=== PATIENT | male | born 1940 | race Caucasian/White ===

== ENCOUNTER 2016-07-21 18:17 | Emergency (ER) | payer OTHER, BC ==
[~2016-07-21] VITALS: Ht 182.9 cm; Wt 80.7 kg
[~2016-07-21 18:17] MED LIST: ASPIRIN81 M2 PO; ATIVAN1 MG PO; CARDIZEM CD120 MG PO; HUMULIN N100 UNIT/1 SUBQ; KEFLEX500 MG PO; LIPITOR40 MG PO; METOPROLOL SUCC25 M1 PO; NEURONTIN600 MG PO; PLAVIX 75 MG TA75 M1 PO; PRAVACHOL20 MG PO; SILVADENE20 GM TP
[2016-07-21] MEDS ORDERED: TIZANIDINE HCL4 MG PO (19:43)
[2016-07-21] MEDS ORDERED: IBUPROFEN 600600 M1 PO (19:43)
[2016-07-21] MEDS ORDERED: ULTRAM 50MG TAB50 MG PO (19:43)
== END 2016-07-21 20:04 | disposition home or self-care (01) ==
LOC: ER 18:17
DX: M54.5 Low back pain (principal); E11.9 Type 2 diabetes mellitus without complications; I25.2 Old myocardial infarction

== ENCOUNTER 2017-10-26 06:58 | Inpatient (IN) | payer OTHER, BC ==
[~2017-10-26] VITALS: Ht 185 cm; Wt 83.3 kg
--- NOTE | ~2017-10-26 | EKG ---
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
--- NOTE | ~2017-10-26 | 2DMMODE ---
[facility] [address] [place] [address] 2 D/M-MODE ECHOCARDIOGRAM Name: KWAME PATEL Room #: 217-P [facility] [place] IN M.R.#: [id number] Admission: 10/26/17 Attend Phys: Juan Carlos Aquino, Discharge: 10/27/17 Date of : 40 Date of Service: 10/27/17 1517 Report #: [id number] THIS REPORT FOR: //name// APPROVED REPORT Study performed: 10/27/2017 09:29:14 EXAM: Comprehensive 2D, Doppler, and color-flow Echocardiogram Patient Location: Echo lab Room #: [facility] Status: routine BSA: 2.05 HR: 75 bpm BP: 128/70 mmHg Other Information Study Quality: Good Indications Diabetes Atrial Fibrillation CAD 2D Dimensions RVDd: 48.53 mm LVEF(%): 59.83 (>50%) IVSd: 12.04 (7-11mm) LVOT Diam: 23.74 (18-24mm) LVDd: 44.18 mm PWd: 12.63 (7-11mm) Ascending Ao: 36.15 (22-36mm) LVDs: 30.20 (25-40mm) Aortic Root: 35.00 mm IVC: 27.00 mm Scruggs's LVEF: 59.83 % Volumes Left Atrial Volume (Systole) Single Plane 4CH: 69.30 mL Single Plane 2CH: 92.42 mL LA ESV Index: 43.00 mL/m2 Aortic Valve AoV Peak Joseph.: 0.87 m/s AO Peak Gr.: 3.04 mmHg LVOT Max P.64 mmHg LVOT Max V: 0.64 m/s DAI Vmax: 3.24 cm2 Mitral Valve MV Decel. Time: 172.27 ms [facility] [place] [address] 2 D/M-MODE ECHOCARDIOGRAM Name: AMANDAMAPLE Room #: [address] [place] [address] [place] M.R.#: [id number] Admission: 10/26/17 Attend Phys: Juan Carlos Aquino, Discharge: 10/27/17 Date of : 40 Date of Service: 10/27/17 1517 Report #: [id number] MV E Max Joseph.: 0.92 m/s Pulmonary Valve PV Peak Joseph.: 0.47 m/s PV Peak Gr.: 0.89 mmHg Tricuspid Valve TR Peak Joseph.: 2.34 m/s TR Peak Gr.: 22.18 mmHg PA Pressure: 32.00 mmHg Left Ventricle The left ventricle is normal size. There is normal LV segmental wall motion. Mild concentric left ventricular hypertrophy. The left ventricular systolic function is normal. The left ventricular ejection fraction is within the normal range. LVEF is 55-60%. This study is not technically sufficient to allow evaluation of the LV diastolic function due to atrial fibrillation. Right Ventricle Right ventricle is dilated. Right ventricle is hypokinetic. Atria Left atrium is dilated. Right atrium is dilated. Aortic Valve Aortic valve is calcified, trileaflet Trace aortic regurgitation. There is no aortic valvular stenosis. Mitral Valve Mild mitral annular calcification Mild mitral regurgitation. No evidence of mitral valve stenosis. Tricuspid Valve The tricuspid valve is normal in structure. There is mild tricuspid regurgitation. Estimated PAP 32 mmHg. There is mild pulmonary hypertension. Pulmonic Valve The pulmonary valve is normal in structure. Trace pulmonic regurgitation. Great Vessels The aortic root is normal in size. IVC is dilated and collapses <50% with inspiration. [facility] [address] [place] [address] 2 D/M-MODE ECHOCARDIOGRAM Name: AMANDAMAPLE Room #: 217-P [facility] [place] IN M.R.#: [id number] Admission: 10/26/17 Attend Phys: Juan Carlos Aquino, Discharge: 10/27/17 Date of : 40 Date of Service: 10/27/17 1517 Report #: [id number] Pericardium Trace to small pericardial effusion. <Conclusion> The left ventricular systolic function is normal. There is normal LV segmental wall motion. LVEF is 55-60%. Both atria are dilated. Aortic valve is calcified, trileaflet. No stenosis. Trace aortic regurgitation. Mild mitral annular calcification. Mild mitral regurgitation. There is mild tricuspid regurgitation. Estimated pulmonary artery pressure of 32 mmHg. Trace to small pericardial effusion. <ELECTRONICALLY SIGNED> By: Miguel Leone MD, FACC 10/27/17 151 16 16 Miguel Leone MD, FAC /INF
[~2017-10-26 06:58] MED LIST changes: +IBUPROFEN 600600 M1 PO; +TIZANIDINE HCL4 MG PO; +ULTRAM 50MG TAB50 MG PO
[2017-10-26 07:06] VITALS: BP 117/77
[2017-10-26 07:28] LABS: ABSOLUTE NEUTROPHILS 3.8 thou/uL (1.4-8.2); EOSINOPHILS 9.1 % (0.0-3.0); HEMATOCRIT 42.2 % (42.0-52.0); HEMOGLOBIN 14.1 gm/dL (14.0-18.0); LYMPHOCYTES 22.3 % (24.0-44.0); MCH 30.5 pg (26.0-34.0); MCHC 33.5 g/dL (28.0-37.0); MCV 91.1 fL (80.0-100.0); MONOCYTES 7.3 % (1.0-8.0); PLATELET COUNT 330 thou/uL (150-400); POLYS 60.3 % (36.0-66.0); RBC 4.64 mil/uL (4.50-6.00); RDW 16.6 % (10.5-14.5); WBC 6.3 thou/uL (4.0-11.0)
[2017-10-26 07:34] LABS: ANION GAP 6 mmol/L (7-16); BUN 14 mg/dL (7-18); CALCIUM 9.4 mg/dL (8.5-10.1); CHLORIDE 100 mmol/L (98-107); CO2 27 mmol/L (21-32); CREATININE 1.2 mg/dL (0.7-1.3); GLUCOSE 269 mg/dL (74-106); POTASSIUM 4.7 mmol/L (3.5-5.1); SODIUM 133 mmol/L (136-145)
[2017-10-26 07:43] LABS: TROPONIN-I < 0.04 ng/mL (<0.06)
[2017-10-26 10:45] VITALS: BP 105/69
[2017-10-26 11:20] VITALS: BP 108/66
[2017-10-26 16:59] VITALS: BP 118/78
[2017-10-26 19:40] VITALS: BP 108/60
[2017-10-26 23:53] VITALS: BP 113/70
[2017-10-27 04:05] VITALS: BP 107/67
[2017-10-27] MEDS ORDERED: ELIQUIS5 MG PO (07:52)
[2017-10-27] MEDS ORDERED: CARDIZEM CD240 MG PO (07:53)
[2017-10-27 08:22] VITALS: BP 128/70
[2017-10-27 10:27] VITALS: BP 128/70
[2017-10-27 12:30] VITALS: BP 128/70
== END 2017-10-27 12:26 | disposition home or self-care (01) | DRG 310 ==
LOC: ER 06:58 → 2N 10:02 → EROBS 10:02 → 2N 11:21 → ENTRNSPT 10-27 12:06 → 2N 10-27 12:26
PROVIDERS: Emergency Medicine
DX: I48.91 Unspecified atrial fibrillation (principal); I48.92 Unspecified atrial flutter; S80.02XA Contusion of left knee, initial encounter; E11.40 Type 2 diabetes mellitus with diabetic neuropathy, unspecified; I25.10 Atherosclerotic heart disease of native coronary artery without angina pectoris; S89.92XA Unspecified injury of left lower leg, initial encounter; I25.2 Old myocardial infarction; E78.5 Hyperlipidemia, unspecified; E11.9 Type 2 diabetes mellitus without complications; W01.0XXA Fall on same level from slipping, tripping and stumbling without subsequent striking against object, initial encounter; Y93.89 Activity, other specified; Y92.89 Other specified places as the place of occurrence of the external cause; Y99.8 Other external cause status; Z79.82 Long term (current) use of aspirin; Z79.899 Other long term (current) drug therapy; Z95.5 Presence of coronary angioplasty implant and graft
CPT/HCPCS: 10081

== ENCOUNTER → 2017-11-15 | Outpatient (CLI) | payer OTHER, BC ==
[~2017-11-15] MED LIST changes: +CARDIZEM CD240 MG PO; +ELIQUIS5 MG PO
== END ==
LOC: MRI 11-14 13:53
DX: M19.072 Primary osteoarthritis, left ankle and foot (principal); M86.8X7 Other osteomyelitis, ankle and foot; M79.89 Other specified soft tissue disorders

== ENCOUNTER → 2017-11-21 | Outpatient (CLI) | payer OTHER, BC | LOC: HYPER 06:41 | DX: E11.621 Type 2 diabetes mellitus with foot ulcer (principal); L97.522 Non-pressure chronic ulcer of other part of left foot with fat layer exposed; E11.40 Type 2 diabetes mellitus with diabetic neuropathy, unspecified; L84 Corns and callosities; I10 Essential (primary) hypertension; I25.2 Old myocardial infarction; I48.91 Unspecified atrial fibrillation; E78.00 Pure hypercholesterolemia, unspecified; Z87.891 Personal history of nicotine dependence; Z79.4 Long term (current) use of insulin ==

== ENCOUNTER → 2017-12-06 | Outpatient (CLI) | payer OTHER, BC | LOC: HYPER 06:58 | DX: E11.621 Type 2 diabetes mellitus with foot ulcer (principal); L97.522 Non-pressure chronic ulcer of other part of left foot with fat layer exposed; E11.40 Type 2 diabetes mellitus with diabetic neuropathy, unspecified; E11.65 Type 2 diabetes mellitus with hyperglycemia; I10 Essential (primary) hypertension; E78.5 Hyperlipidemia, unspecified; E78.00 Pure hypercholesterolemia, unspecified; L84 Corns and callosities; I48.91 Unspecified atrial fibrillation; I25.2 Old myocardial infarction; Z87.891 Personal history of nicotine dependence; Z79.4 Long term (current) use of insulin ==

== ENCOUNTER 2018-08-02 08:04 | Emergency (ER) | payer OTHER, BC ==
[~2018-08-02] VITALS: Ht 180.3 cm; Wt 81.7 kg
[2018-08-02] MEDS ORDERED: PRAVACHOL40 MG PO (08:29)
[2018-08-02] MEDS ORDERED: XARELTO20 MG PO (08:29)
[2018-08-02] MEDS ORDERED: CYCLOBENZAPRINE5 MG PO (09:38)
[2018-08-02 10:12] VITALS: BP 116/63
== END 2018-08-02 10:00 | disposition home or self-care (01) ==
LOC: ER 08:04
DX: M54.5 Low back pain (principal); E78.5 Hyperlipidemia, unspecified; E11.40 Type 2 diabetes mellitus with diabetic neuropathy, unspecified; Z87.891 Personal history of nicotine dependence

== ENCOUNTER 2018-08-08 23:33 | Inpatient (IN) | payer OTHER, BC ==
[~2018-08-08] VITALS: Ht 177.8 cm; Wt 81.3 kg
[2018-08-08 23:33] VITALS: BP 134/75
[~2018-08-08 23:33] MED LIST changes: +CYCLOBENZAPRINE5 MG PO; +PRAVACHOL40 MG PO; +XARELTO20 MG PO
[2018-08-08 23:51] LABS: ABSOLUTE NEUTROPHILS 5.7 thou/uL (1.4-8.2); BASOPHILS 1.1 % (0.0-2.0); EOSINOPHILS 4.8 % (0.0-3.0); HEMATOCRIT 42.6 % (42.0-52.0); HEMOGLOBIN 14.5 gm/dL (14.0-18.0); LYMPHOCYTES 17.1 % (24.0-44.0); MCH 31.5 pg (26.0-34.0); MCHC 33.9 g/dL (28.0-37.0); MCV 92.9 fL (80.0-100.0); PLATELET COUNT 324 thou/uL (150-400); RBC 4.59 mil/uL (4.50-6.00); RDW 16.6 % (10.5-14.5); WBC 8.2 thou/uL (4.0-11.0)
[2018-08-08 23:53] LABS: ANION GAP 10 mmol/L (7-16); BUN 15 mg/dL (7-18); CHLORIDE 101 mmol/L (98-107); CO2 24 mmol/L (21-32); CREATININE 1.2 mg/dL (0.7-1.3); GLUCOSE 189 mg/dL (74-106); POTASSIUM 4.5 mmol/L (3.5-5.1); SODIUM 135 mmol/L (136-145)
[2018-08-09] VITALS (10 sets, daily range): BP systolic 104–125; BP diastolic 55–71
[2018-08-09] LABS: APTT 34.8 Seconds (24.5-32.8); INR 1.2; PROTIME 12.6 Seconds (9.3-11.4)
[2018-08-09 00:02] LABS: TROPONIN-I <0.06 ng/mL (<0.06)
--- NOTE | 2018-08-09 09:20 | EKG ---
[address] [place] [address] ELECTROCARDIOGRAM REPORT Name: KWAME PATEL Room #: 215-P ADM IN M.R.#: [id number] Admission: 08/09/18 Attend Phys: Juan Carlos Aquino MD Discharge: Date of : 40 Report #: [id number] THIS REPORT FOR: //name// 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 : 1940 Requested By: Sussy Diaz Order Number: [id number] MD: Miguel Leone Measurements Intervals [place] Rate: 125 P: [place]: ]] QRS: 95 QRSD: 129 T: 38 QT: 367 QTc: 530 Interpretive Statements Atrial fibrillation Right bundle branch block Compared to ECG 10/26/2017 07:18:15 No significant change was found Electronically Signed On 08-09-2018 9:20:20 ANCHORMAN by Miguel Leone [email or web address] <ELECTRONICALLY SIGNED> By: Miguel Leone MD, [facility] 08/09/18 0920 39 Miguel Leone MD, [facility] /EPI
--- NOTE | 2018-08-09 15:50 | 2DMMODE ---
[facility] [address] [place] [address] 2 D/M-MODE ECHOCARDIOGRAM Name: KWAME PATEL Room #: 215-P ADM IN M.R.#: [id number] Admission: 08/09/18 Attend Phys: Juan Carlos Aquino, Discharge: Date of : 40 Date of Service: 08/09/18 1550 Report #: [id number] THIS REPORT FOR: //name// APPROVED REPORT Study performed: 08/09/2018 13:09:57 EXAM: Comprehensive 2D, Doppler, and color-flow Echocardiogram Patient Location: Bedside Room #: 215 Status: routine BSA: 1.99 HR: 75 bpm BP: 105/69 mmHg Rhythm: NSR Other Information Study Quality: Adequate Indications Diabetes Atrial Fibrillation Hypertension/HDD 2D Dimensions RVDd: 39.55 mm IVSd: 9.13 (7-11mm) LVOT Diam: 22.41 (18-24mm) LVDd: 50.85 mm PWd: 9.27 (7-11mm) Ascending Ao: 34.98 (22-36mm) LVDs: 42.23 (25-40mm) Aortic Root: 36.75 mm IVC: 24.00 mm Volumes Left Atrial Volume (Systole) Single Plane 4CH: 47.26 mL Single Plane 2CH: 75.10 mL LA ESV Index: 33.00 mL/m2 Aortic Valve AoV Peak Joseph.: 0.84 m/s AO Peak Gr.: 2.80 mmHg LVOT Max P.50 mmHg LVOT Max V: 0.61 m/s DAI Vmax: 2.88 cm2 Mitral Valve E/A Ratio: 2.7 MV Decel. Time: 209.02 ms [facility] [address] [place] [address] 2 D/M-MODE ECHOCARDIOGRAM Name: KWAME PATEL Room #: [address] [place] [address] IN M.R.#: [id number] Admission: 08/09/18 Attend Phys: Juan Carlos Aquino, Discharge: Date of : 40 Date of Service: 08/09/18 1550 Report #: [id number] MV E Max Joseph.: 0.86 m/s MV A Joseph.: 0.32 m/s MV PHT: 60.62 ms IVRT: 101.50 ms Pulmonary Valve PV Peak Joseph.: 0.53 m/s PV Peak Gr.: 1.12 mmHg Tricuspid Valve TR Peak Joseph.: 2.34 m/s TR Peak Gr.: 21.87 mmHg PA Pressure: 32.00 mmHg Left Ventricle The left ventricle is normal size. There is normal left ventricular wall thickness. Left ventricular systolic function is mildly decreased. LVEF is 45%.global hypo This study is not technically sufficient to allow evaluation of the LV diastolic function. Right Ventricle Right ventricle is at the upper limits of normal. Right ventricle is mildly hypokinetic. Atria Left atrium is at the upper limits of normal. Right atrium is dilated. Aortic Valve The aortic valve is normal in structure. No aortic regurgitation is present. There is no aortic valvular stenosis. Mitral Valve The mitral valve is normal in structure. There is no mitral valve regurgitation noted. No evidence of mitral valve stenosis. Tricuspid Valve The tricuspid valve is normal in structure. There is mild tricuspid regurgitation. Estimated PAP 32 mmHg. There is mild pulmonary hypertension. Pulmonic Valve The pulmonary valve is normal in structure. Trace pulmonic regurgitation. Great Vessels [facility] [address] [place] [address] 2 D/M-MODE ECHOCARDIOGRAM Name: KWAME PATEL Room #: 215-P ADM IN M.R.#: [id number] Admission: 08/09/18 Attend Phys: Juan Carlos Aquino, Discharge: Date of : 40 Date of Service: 08/09/18 1550 Report #: [id number] The aortic root is normal in size. IVC is dilated and collapses <50% with inspiration. Pericardium There is no pericardial effusion. <Conclusion> The left ventricle is normal size. Left ventricular systolic function is mildly decreased. LVEF is 45%.global hypo This study is not technically sufficient to allow evaluation of the LV diastolic function. Right ventricle is at the upper limits of normal. Left atrium is at the upper limits of normal. Right atrium is dilated. The aortic valve is normal in structure. There is no mitral valve regurgitation noted. There is mild tricuspid regurgitation. Estimated PAP 32 mmHg. There is mild pulmonary hypertension. The aortic root is normal in size. There is no pericardial effusion. <ELECTRONICALLY SIGNED> By: Magdaleno Murillo MD, FACC 08/09/18 1550 1550 1550 Magdaleno Murillo MD, FACC /INF
[2018-08-10 04:31] VITALS: BP 92/53
[2018-08-10 04:33] VITALS: BP 92/53
[2018-08-10 05:32] VITALS: BP 108/65
[2018-08-10 08:11] VITALS: BP 110/69
--- NOTE | 2018-08-10 08:19 | EKG ---
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
[2018-08-10 10:15] VITALS: BP 83/47
[2018-08-10] MEDS ORDERED: METOPROLOL SUCC50 MG PO (11:45)
[2018-08-10] MEDS ORDERED: HYDROCODON-ACE1 EAC7 PO (11:46)
== END 2018-08-10 14:43 | disposition left against medical advice (07) | DRG 562 ==
LOC: ER 23:33 → 2N 08-09 01:30 → EROBS 08-09 01:30 → 2N 08-09 02:41
PROVIDERS: Student in an Organized Health Care Education/Training Program; ADMIT Family Medicine
DX: S92.301A Fracture of unspecified metatarsal bone(s), right foot, initial encounter for closed fracture (principal); E43 Unspecified severe protein-calorie malnutrition; I48.92 Unspecified atrial flutter; I48.0 Paroxysmal atrial fibrillation; I25.2 Old myocardial infarction; E78.5 Hyperlipidemia, unspecified; E11.40 Type 2 diabetes mellitus with diabetic neuropathy, unspecified; S09.90XA Unspecified injury of head, initial encounter; I25.10 Atherosclerotic heart disease of native coronary artery without angina pectoris; I10 Essential (primary) hypertension; I65.21 Occlusion and stenosis of right carotid artery; Z87.891 Personal history of nicotine dependence; Z86.73 Personal history of transient ischemic attack (TIA), and cerebral infarction without residual deficits; W18.39XA Other fall on same level, initial encounter; Y93.89 Activity, other specified; Y92.89 Other specified places as the place of occurrence of the external cause; Y99.8 Other external cause status; Z53.21 Procedure and treatment not carried out due to patient leaving prior to being seen by health care provider
CPT/HCPCS: 10081

== ENCOUNTER 2018-08-24 08:26 | Inpatient (IN) | payer OTHER, BC ==
[~2018-08-24] VITALS: Ht 180.3 cm; Wt 82.0 kg
[~2018-08-24 08:26] MED LIST changes: +HYDROCODON-ACE1 EAC7 PO; +METOPROLOL SUCC50 MG PO
[2018-08-24 08:33] VITALS: BP 124/91
[2018-08-24 09:15] LABS: ABSOLUTE NEUTROPHILS 7.8 thou/uL (1.4-8.2); BASOPHILS 0.8 % (0.0-2.0); EOSINOPHILS 2.4 % (0.0-3.0); HEMATOCRIT 40.8 % (42.0-52.0); LYMPHOCYTES 9.3 % (24.0-44.0); MCH 31.6 pg (26.0-34.0); MCHC 34.4 g/dL (28.0-37.0); MCV 91.9 fL (80.0-100.0); MONOCYTES 5.1 % (1.0-8.0); PLATELET COUNT 334 thou/uL (150-400); POLYS 82.4 % (36.0-66.0); RBC 4.44 mil/uL (4.50-6.00); RDW 15.9 % (10.5-14.5); WBC 9.5 thou/uL (4.0-11.0)
[2018-08-24 09:23] LABS: ANION GAP 9 mmol/L (7-16); BUN 11 mg/dL (7-18); CALCIUM 9.6 mg/dL (8.5-10.1); CHLORIDE 102 mmol/L (98-107); CO2 23 mmol/L (21-32); CREATININE 1.2 mg/dL (0.7-1.3); GLUCOSE 227 mg/dL (74-106); POTASSIUM 4.6 mmol/L (3.5-5.1); SODIUM 134 mmol/L (136-145)
[2018-08-24 09:32] LABS: TROPONIN-I <0.06 ng/mL (<0.06)
[2018-08-24 10:55] VITALS: BP 129/94
--- NOTE | 2018-08-24 11:06 | EKG ---
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: [facility] : 1940 Requested By: Kaden Hope Order Number: [id number] MD: Daniel Gates Measurements Intervals [place] Rate: 127 P: [place]: QRS: 87 QRSD: 123 T: 49 QT: 349 QTc: 508 Interpretive Statements Atrial flutter with predominant 2:1 AV block IVCD, consider atypical RBBB Baseline wander in lead(s) V2 Compared to ECG 08/10/2018 07:23:51 2:1 AV block now present Atrial fibrillation no longer present Electronically Signed On 08-24-2018 11:06:07 BAG WORKER by Daniel Gates [email or web address] ��������������������������������������������� <ELECTRONICALLY SIGNED> ���������������������������������������� By: Daniel Gates MD ��������������������������������������������� 08/24/18 1106 0834 0834 Daniel Gates MD /EPI
[2018-08-24 11:40] LABS: INR 1.3; PROTIME 13.4 Seconds (9.3-11.4)
[2018-08-24 13:05] VITALS: BP 115/62
--- NOTE | 2018-08-24 14:17 | NUR ---
PATIENT ARRIVED TO UNIT FROM ER AROUND 1300. PATIENT LYING IN BED, A&O. ROOM AIR. PATIENT STATES NO COMPLAINTS OF PAIN WHILE STILL IN BED, JUST PAIN WHEN MOVING AND ADJUSTING IN BED. CARDIZEM DRIP INFUSING 15MG/HR AT THIS TIME. VSS. PER DR. CHANCE, VERBAL ORDER, STATES LONG PRESSURES MAINTAING, KEEP RATE AT 15MG/HR.
[2018-08-24 16:27] VITALS: BP 100/61
[2018-08-24 19:43] VITALS: BP 103/61
[2018-08-24 23:15] VITALS: BP 105/62
[2018-08-25] VITALS (10 sets, daily range): BP systolic 94–152; BP diastolic 49–70
--- NOTE | 2018-08-25 07:35 | NUR ---
PT. AOX4 AT SHIFT CHANGE; ST. PAIN 5/10 AT REST; 10/10 WHEN MOVING; HS MEDICATION GIVEN; VS WNL; HR ON 70'S; PRN PAIN MEDICATION GIVEN AT 2300; ABLE TO REST DURING THE NIGHT; NPO AT MIDNIGHT; ASSESSMENT CHARGED; FOLLOWING POC; PASSED ON REPORT.
[2018-08-25 10:04] LABS: INR 1.2
--- NOTE | 2018-08-25 14:13 | O ---
[facility] [place] [address] OPERATIVE REPORT Name: KWAME PATEL Room #: 206-P ADM IN M.R.#: [id number] Admission: 08/24/18 ������������������ Attend Phys: Juan Carlos Aquino MD Discharge: ������������������ Date of : 40 Report #: [id number] THIS REPORT FOR: //name// CC: Devante Aquino DATE OF SERVICE: 08/25/2018 PREOPERATIVE DIAGNOSIS: Left hip intertrochanteric hip fracture. POSTOPERATIVE DIAGNOSIS: Left hip intertrochanteric hip fracture. PROCEDURE: Left hip intramedullary nail. SURGEON: Henry Day M.D. ROAD SIGN INSTALLER: Jocelyn Higginbotham. ANESTHESIA: General. ESTIMATED BLOOD LOSS: Minimal. DRAINS: None. TOURNIQUETS: None. COMPLICATIONS: None. DESCRIPTION OF PROCEDURE: The patient was brought to the operating room where he was placed under general anesthesia. Once under adequate general anesthesia, he was placed onto the fracture table. The left lower extremity was then placed into traction and a reduction maneuver was performed. Preoperative imaging noted the fracture to be satisfactorily aligned. The left hip was then prepped and draped in a sterile manner. The 2 cm incision proximal to the tip of the greater trochanter was made. The curved cannulated awl was then placed and a guidewire placed down the shaft of the femur. An 11 mm in diameter intramedullary nail from [employer] was then placed. The guidewire for the femoral head screw was then placed in a center-center position in the femoral head. Excellent position was achieved and excellent fixation across the fracture was achieved. Transverse locking screw was then placed distally through a separate small incision. Once complete, the wounds were irrigated copiously. Final x-ray images noted the fracture to be satisfactorily aligned. The wounds were irrigated copiously and closed with 2-0 Vicryl in subcutaneous tissues and maribel were used for the skin. The wounds were dressed with Xeroform, 4 x 4s, and a sterile soft compressive dressing was placed. There were no tourniquets [address] [address] OPERATIVE REPORT Name: KWAME PATEL Room #: 206-P [facility] IN .R.#: [id number] Admission: 08/24/18 ������������������ Attend Phys: Juan Carlos Aquino MD Discharge: ������������������ Date of : 40 Report #: [id number] and no complications. The patient was taken to the recovery room without incident. ��������������������������������������������� <ELECTRONICALLY SIGNED> ���������������������������������������� By: Henry Day MD ��������������������������������������������� 08/25/18 1413 1358 1409 Henry Day MD /nt
[2018-08-26] VITALS (10 sets, daily range): BP systolic 95–135; BP diastolic 51–72
--- NOTE | 2018-08-26 04:13 | NUR ---
PT. AOX4 AT SHIFT CHANGE; NO C/O PAIN; SBP IN THE LOW 100'S AND 90'S; NO C/O HEADACHE OR DIZZINESS; CARDIZEM DRIP ON 10 MG/H; HR UP TO 140'S; INCREASED TO 15 BY THE MORNING NURSE; BP RE-ASSESSMENT ON THE 90'S; CARDIZEM DRIP TITRATED TO 10; BP RE-ASSESSEDMENT SBP BETWEEN 90'S AND 100'S; CARDIZEM DRIP TITRATED TO 5 MG/H; SBP RE-ASSESMENT BETWEEN 100 AND 90'S; HR ON THE 60'S; CARDIZEM STOP AT 01;20; HR ON THE 60'S; AT 02:30 HR INCRESED TO 110'S; AT 03:00 HR UP TO 130'S; CARDIZEM DRIP RE-STARTED; O2 SAT ON THE 80'S WHILE SLEEPING O2 APPLIED; DECREASED VOID; ADVICE PT. TO INCREASE FLUIDS; REFUSED IT; ST " I AM NOT A WATER PERSON"; UPSET BECAUSE DUE TO O2, BP CUFF & R. WRIST IV WELL REQUESTIN TO INCREASE WATER DRINKING; EXPLAINED ABOUT THE IMPORTANCE OF MONITORING BP WELL I/O MONITORING; ST "MY KIDNEYS ARE FINE"; MONITORING BP; HR & I/0; ASSESSMENT CHARGED; FOLLOWING POC; WILL PASS ON REPORT.
[2018-08-26 07:52] LABS: CALCIUM 8.5 mg/dL (8.5-10.1); CREATININE 1.3 mg/dL (0.7-1.3); POTASSIUM 5.1 mmol/L (3.5-5.1)
--- NOTE | 2018-08-26 16:54 | NUR ---
ASSESSMENTS DOCUMENTED. PT AFIB ON THE MONITOR - RATES CONTROLLED. SWITCHED FROM IV TO PO CARDIZEM. WORKED WITH PT TODAY. PRN PAIN MEDICATION GIVEN X1 BEFORE WALKING. STARTED ON REGULAR DIET. NOTED LOW SODIUM - ORDERS TO RUN FLUIDS AT 100 ML/HR FOR 2L PER DR. GOODSON. PT VOICES NO NEEDS OR CONCERNS AT THIS TIME. WILL CONTINUE TO MONITOR. PROGRESSING TOWARDS GOALS.
[2018-08-27] VITALS (7 sets, daily range): BP systolic 91–124; BP diastolic 48–67
--- NOTE | 2018-08-27 06:09 | NUR ---
ASSESSMENT DOCUMENTED.PT BEEN RESTING IN NO ACUTE DISTRESS.S/P LEFT HIP SURGERY.VSS.PT DENIES PAIN.DRESSING CDI.PT IN BED THIS SHIFT,ASSISTED WITH REPOSITIONING IN BED.IVF.PT DENIES ANY NEEDS AT THIS TIME.PT EDUCATED ON PAIN MANAGEMENT,VOICED UNDERSTANDING.WILL CONT TO MONITOR.
--- NOTE | 2018-08-27 10:39 | NUR ---
patient resides at home in [place] with sister. He has multiple steps to condo. He left AMA Feb1 from [facility]. He did not rec HH or a walker he fell at home. patient readmits with femur fx. Discussed with therapy team, patient would benefit from rehab prior to home. Discussed with patient possible 5N consult. Patient agreeable to acute rehab "if here in hosptial." 5n eval in process, patient would benefit from acute rehab with goal for home.
--- NOTE | 2018-08-27 14:27 | NUR ---
TRAVEL AGENT SPOKE WITH PATIENT REGARDING 5 NORTH/ACUTE REHAB STAY. PATIENT BECAME UPSET WHEN IT WAS MENTIONED THAT HE NEEDED FURTHER THERAPY PRIOR TO RETURNING TO HIS HOME. PATIENT STATED THAT HE WAS NOT GOING UP TO REHAB. HE STATED HE WAS GOING HOME. PATIENT WAS LEFT WITH BROCHURE AND TOLD THAT IF HE CHANGED HIS MIND THAT HE COULD STILL BE ADMITTED, JUST TO LET THE SOICAL WORKER KNOW. ABOVE INFORMATION SHARED WITH MANAGER ORDER,
--- NOTE | 2018-08-27 14:33 | NUR ---
ASSESSMENTS DOCUMENTED. AFIB, RATES CONTROLLED. PRN PAIN MEDICATION GIVEN X1 PRIOR TO WORKING WITH THERAPY. WEAKNESS OBSERVED - PT WILL BENEFIT FROM REHAB D/T HAVING TO WALK UP 20 STAIRS TO HIS HOME. ACCUCHECKS ACHS - INSULIN PER LOW DOSE SS. NO FURTHER NEEDS AT THIS TIME.
--- NOTE | 2018-08-27 14:57 | NUR ---
5n evaled and accepting. patient adamently refuses. 5N aditya sp with patient who refuses. Sp with patient and questioned this am he was agreeable he reports he was not agreeable and he wants to do outpatient therapy by his home 3x a week. Questioned steps to his condo he reports he will be able to accomadate steps at home with help. He reports he will have help at home. he did want caset to call his sister he plans to update her. Updated Dr Aquino. Requested [facility] eval for care. Sp with Delphine with [facility] [employer] to review for walker for home.
[2018-08-28 02:01] VITALS: BP 128/68
--- NOTE | 2018-08-28 02:02 | NUR ---
PT RESTING IN NO ACUTE DISTRESS.NOTED ON THE MONITOR PT HR GOING UPTO 150S SUSTAINING BETWEEN 120S -140S WHILE SLEEPING.PT WHEN ASSESSED DENIES CHEST PAIN OR PALPITATION,DENIES SYNCOPY OR ANY DISCOMFORT.S/P HIP SURGERY,DENIES PAIN.AFIB W/RVR SUSTAINED.DR SUNG CONTACTED,ORDERS GIVEN TO START CARDIZEM PER CARDIOLOGY PROTOCOL.VSS.PT UPDATED ON THE POC.WILL CONTINUE TO MONITOR.
[2018-08-28 04:09] VITALS: BP 116/54
[2018-08-28] MEDS ORDERED: DIGOXIN125 MCG PO (07:29)
[2018-08-28 07:50] VITALS: BP 113/59
[2018-08-28 12:30] VITALS: BP 106/58
--- NOTE | 2018-08-28 14:42 | NUR ---
spoke with patient and sister with whom he resides. Discussed with patient he is not safe for home without cont to work with therapy on steps. Requested he reconsider 5N. Sister who was not in room, did not want patient to know she was still at hospital. She showed casemgt pictures of stairs at home. Approx 20 steps. Sister reports he cannot come home until safe for home. Patient reluctantly agreeable to 5N. Shavon ANDRE practioner met with patient who was agreeable. 5N accepting. Updated phys and sister. Plan transfer to 5N today.
--- NOTE | 2018-08-28 14:56 | NUR ---
ASSESSMENT DOCUMENTED. VSS. AFIB/AFLUTTER ON THE MONITOR. RATES CONTROLLED. PT UP TO SHOWER. TOLERATED WELL. L HIP DRESSING CHANGED TO AQUACELL AFTER SHOWER. PT TX TO 5N ROOM 504. WILL CONTINUE TO MONITOR.
== END 2018-08-28 15:04 | DRG 480 ==
LOC: ER 08:26 → 2N 10:51 → EROBS 10:51 → 2N 12:45
PROVIDERS: Emergency Medicine; ADMIT Family Medicine
PROC: 0QS706Z Reposition Left Upper Femur with Intramedullary Internal Fixation Device, Open Approach (ICD-10-PCS; principal; 2018-08-25)
DX: S72.142A Displaced intertrochanteric fracture of left femur, initial encounter for closed fracture (principal); E43 Unspecified severe protein-calorie malnutrition; I48.92 Unspecified atrial flutter; I48.0 Paroxysmal atrial fibrillation; E78.5 Hyperlipidemia, unspecified; I10 Essential (primary) hypertension; I44.30 Unspecified atrioventricular block; I45.10 Unspecified right bundle-branch block; E11.42 Type 2 diabetes mellitus with diabetic polyneuropathy; I95.9 Hypotension, unspecified; I25.10 Atherosclerotic heart disease of native coronary artery without angina pectoris; W18.30XA Fall on same level, unspecified, initial encounter; Y93.89 Activity, other specified; Y92.038 Other place in apartment as the place of occurrence of the external cause; Y99.8 Other external cause status; I25.2 Old myocardial infarction; Z87.891 Personal history of nicotine dependence; Z86.73 Personal history of transient ischemic attack (TIA), and cerebral infarction without residual deficits; Z79.01 Long term (current) use of anticoagulants; Z79.899 Other long term (current) drug therapy; Z28.21 Immunization not carried out because of patient refusal
CPT/HCPCS: 10081; 50010; 50101; 50386; 50635; 51412; 51538; 51817; 52146; 52304; 55430; 56524; 57092; 62110; 62900; 70005

== ENCOUNTER 2018-08-28 11:46 | Inpatient (IN) | payer OTHER, BC ==
[~2018-08-28] VITALS: Ht 180.3 cm; Wt 82.9 kg
--- NOTE | ~2018-08-28 | EKG ---
[address] [address] ELECTROCARDIOGRAM REPORT Name: KWAME PATEL Room #: 504-2 ADM IN M.R.#: [id number] ������������������ Admission: 08/28/18 ������������������ Attend Phys: Nick Tidwell MD Discharge: ������������������ Date of : 40 Report #: [id number] ����������������������������������������������������������������� [id number] THIS REPORT FOR: //name// [facility] Test Date: 2018-08-30 Test Time: 08:53:51 Pat Name: KWAME PATEL Department: Room: [facility] 2 Gender: M Working Manager: Jose Armando MALIN : 1940 Requested By: Naila Caruso Order Number: [id number] MD: Measurements Intervals [place] Rate: 151 P: 0 IN: 56 QRS: 80 QRSD: 118 T: 33 QT: 362 QTc: 575 Interpretive Statements Supraventricular tachycardia Right bundle branch block Compared to ECG 08/24/2018 08:34:24 Atrial flutter no longer present 2:1 AV block no longer present [email or web address] ��������������������������������������������� ���������������������������������������� By: ��������������������������������������������� 0853 0853 Epiphany EpiphanyMD /EPI
--- NOTE | ~2018-08-28 | PLAN ---
[facility] [address] REHAB UNIT PLAN OF CARE Name: KWAME PATEL Room #: 504-2 ADM IN M.R.#: [id number] Admission: 08/28/18 ������������������ Attend Phys: Nick Tidwell MD Discharge: ������������������ Date of : 40 Report #: [id number] THIS REPORT FOR: //name// CC: Nick Aquino DATE OF SERVICE: 08/31/2018 PROGRESS NOTE/OVERALL PLAN OF CARE SUBJECTIVE: The patient was seen back today in followup. No new complaints. He has decreased insight into his deficits, but I was able to reason with him. His temperature is 36.4, pulse 91, respirations 15, blood pressure 121/72. He has been monitored regarding his blood pressures. He does have paroxysmal atrial fibrillation with rapid ventricular response and was noted to have orthostatic hypotension. We have encouraged liberalization of sodium and fluid. He has been involved in therapies with transfers, mod assist, and gait min assist 35 feet front-wheeled walker. In occupational therapy, lower body dressing is mod assist. He does have vhto-dg-brngyura comprehension deficits noted in speech. He has onptcmxm-ny-wdcgqv memory deficits. ASSESSMENT: 1. Left hip intertrochanteric fracture, status post intramedullary nail on 08/25/2018. 2. Recurrent falls. 3. Atrial fibrillation with rapid ventricular response. 4. Syncopal episode secondary to the above. 5. Hypotension on hypertension. 6. Orthostatic hypotension. 7. Type 2 diabetes mellitus. 8. Hyperlipidemia. 9. History of transient ischemic attack. 10. Deep venous thrombosis prophylaxis. PLAN: The overall plan of care is based on the preadmission screen, post-admission physician evaluation, and information garnered from therapy assessments. 1. Estimated length of stay is probably at least 7-10 days and likely longer depending upon how he does. 2. Medical prognosis is reasonably good. 3. Anticipated interventions include interdisciplinary acute inpatient rehabilitation program with the goal of maximizing his functional independence, so he can hopefully return back to his prior living situation. 4. Anticipated functional outcomes would be for him to become modified independent with basic transfers, mobility issues, and ADLs at the walker level. He also needs to be able to go up multiple steps, [place] [address] REHAB UNIT PLAN OF CARE Name: KWAME PATEL Room #: 504-2 ADM IN M.R.#: [id number] Admission: 08/28/18 ������������������ Attend Phys: Nick Tidwell MD Discharge: ������������������ Date of : 40 Report #: [id number]. 5. Discharge destination would be back home with his sister in their apartment. 6. Expected therapy by discipline includes PT, OT and speech 1 hour per day each 5 days a week throughout the duration of the acute inpatient rehabilitation stay. ��������������������������������������������� ���������������������������������������� By: ��������������������������������������������� [id number] Nick Tidwell MD /nt
[~2018-08-28 11:46] MED LIST changes: +DIGOXIN125 MCG PO
--- NOTE | 2018-08-28 16:12 | NUR ---
1500 ADMITTED TO ROOM 504-2. PATIENT IS ALERT AND ORIENTED X4. PATIENT BURCH'S, INDUSTRIAL ROOFER HELPER ARE STRONG. PT STATES "HE HAS PERIPHERAL NEUROPATHY AND DOESN'T HAVE A LOT OF FEELING IN HIS FEET. LUNGS ARE CLEAR. ABD IS SOFT WITH BSX4. PATIENT HAS A AQUACELL DRESSING TO HIS LEFT HIP THAT IS DRY AND INTACT. PATIENT HAS S.L. IN HIS RIGHT AND LEFT FORARM. PATIENT VOIDS VANESSA COLORED URINE BY URINAL. PATIENT IS DIABETIC. FALL AND SAFETY PROTOCOLS IN PLACE. DENIES ANY PAIN AT THIS TIME. PT/OT/ST LAYLAALS TO BE DONE IN THE A.M. WILL CONTINUE TO MONITER.
[2018-08-28 17:13] VITALS: BP 112/72
[2018-08-28 19:21] VITALS: BP 115/68
--- NOTE | 2018-08-29 00:17 | NUR ---
PT ALERT AND ORIENTED X 4. LEFT HIP DRESSING C/D/I. PT DENIES PAIN OR DISCOMFORT. REFUSES Q2H TURNS. STATED I TURN MYSELF. BLOOD SUGAR 101 AT HS. NO INSULIN NEEDED. BED ALARM ON FOR SAFETY. PT CHECKED ON HOURLY ROUNDS.
[2018-08-29 04:44] LABS: CALCIUM 8.6 mg/dL (8.5-10.1); CREATININE 0.9 mg/dL (0.7-1.3); POTASSIUM 4.2 mmol/L (3.5-5.1)
[2018-08-29 04:51] LABS: HEMOGLOBIN 10.9 gm/dL (14.0-18.0); MCH 30.5 pg (26.0-34.0); MCV 92.3 fL (80.0-100.0); RBC 3.57 mil/uL (4.50-6.00); RDW 16.3 % (10.5-14.5); WBC 6.8 thou/uL (4.0-11.0)
--- NOTE | 2018-08-29 06:10 | NUR ---
BP 177/87 THIS MORNING. PRN HYDRALAZINE GIVEN ORDERED.
[2018-08-29 07:35] VITALS: BP 110/73
[2018-08-29 09:20] VITALS: BP 67/454
[2018-08-29 09:25] VITALS: BP 131/77
--- NOTE | 2018-08-29 10:00 | NUR ---
chart review. pt up in room working with [facility] to mary rn and dcp. cm left message with sister nick. per chart independ prior to hospital, has had past h/o falls, has approx 14-20 steps he will need to be able to do at his condo. lives with sister nick. uses pill box for medication. pt is a & o x 3 with forgetfulness. will cont following as needed for dc needs. provider plus will deliver fww prior to dc home.
--- NOTE | 2018-08-29 12:19 | NUR ---
Nutrition: pt admit to rehab unit S/P Left hip fracture IM nail. Reports poor intake due to dislike of hospital food. Knows how to order meals which was encouraged. Ate well at home and no weight loss reported. BG 101-325, on carb controlled diet. Food preferences provided. Pt agrees to Glucerna on trays til eating more. Low nutrition risk.
[2018-08-29 16:30] VITALS: BP 116/77
[2018-08-29 19:30] VITALS: BP 119/64
[2018-08-29 20:30] VITALS: BP 110/72
--- NOTE | 2018-08-30 02:06 | NUR ---
assumed care at approx 1900 evening 08/29. pt lying in bed with head of bed elevated. pt alert and oriented x4, stating he was very tired from rehab today. pt assisted up into w/c to toilet to have large loose, formed bm in toilet. pt took hs meds with no problems and appears to be sleeping soundly. bed alarm on and call light in reach. will continue to monitor.
[2018-08-30 08:36] VITALS: BP 106/74
--- NOTE | 2018-08-30 11:05 | NUR ---
PT WAS UP IN W/C WITH THERAPY STATES WAS DIZZY PATIENT PUT BACK TO BED HEART RATE IS HIGH THEN LOW. NCP AWARE AND MED CHANGES IN PLACE.
--- NOTE | 2018-08-30 15:57 | NUR ---
PT RESTING IN BED WATCHING TV. HR= 77 O2 SAT = 97% RA. PT STATES NO PAIN NOTHING NEEDED AT THIS TIME. BLOOD SUGARS MONITORED. S/S INSULIN ORDERED. PT IS WORKING WITH THERAPY.
[2018-08-30 21:15] VITALS: BP 101/63
--- NOTE | 2018-08-31 02:58 | NUR ---
ASSESMENT: PT REMAIN ALERT AND ORIENT TIMES FOUR. BEDREST FOR NOW R/T BP FROPS AND HR DROPS. VOIDS PER URINAL, STAFF EMPTIES. TOLERATING PO INTAKE. DRESSING C/D/I ON LEFT HIP, WITH JOHN. C/O LEFT HIP PAIN, PRN PAIN MEDS GIVEN WITH GOOD RESULTS. SLEEPING DURING THE NIGHT. SLOW PROGRESS, WILL CONTINUE TO MONITOR.
[2018-08-31 08:53] VITALS: BP 121/72
--- NOTE | 2018-08-31 09:57 | EKG ---
[address] [address] ELECTROCARDIOGRAM REPORT Name: KWAME PATEL Room #: 504-2 ADM IN M.R.#: [id number] ������������������ Admission: 08/28/18 ������������������ Attend Phys: Nick Tidwell MD Discharge: ������������������ Date of : 40 Report #: [id number] ����������������������������������������������������������������� [id number] THIS REPORT FOR: //name// [facility] Test Date: 2018-08-31 Test Time: 08:55:21 Pat Name: KWAME PATEL Department: Room: [facility] 2 Gender: M Plugger Worker: PATRICIA : 1940 Requested By: Naila Caruso Order Number: [id number] MD: Daniel Gates Measurements Intervals [place] Rate: 107 P: NC: QRS: 51 QRSD: 131 T: -67 QT: 357 QTc: 477 Interpretive Statements Atrial flutter Right bundle branch block Baseline wander in lead(s) I,II,aVR,aVF,V3 Compared to ECG 08/30/2018 08:53:51 Electronically Signed On 08-31-2018 9:56:52 [employer] PROFESSOR by Daniel Gates [email or web address] ��������������������������������������������� <ELECTRONICALLY SIGNED> ���������������������������������������� By: Daniel Gates MD ��������������������������������������������� 08/31/18 0956 Daniel Gates MD /EPI
--- NOTE | 2018-08-31 19:32 | NUR ---
ASSUMED CARES AT 0700. PT CONFUSED, ORIENTED TO PERSON AND PLACE. C/O LEFT HIP PAIN, ACETAMINOPHEN ADMINISTERED NEEDED. LEFT HIP DRESSING REMAINS INTACT, BRUISING REMAINS AROUND INCISION, WEIGHT BEARING TOLERATED ON THE EXTREMITY. PT IS IMPULSIVE AND NEEDS SUPERVISION WHEN IN TOILET. OTHOSTATIC HYPOTENSION NOTED AFTER THERAPY THIS AFTERNOON, HR FLACTUATING AND >140BPM WITH ACTIVITY. CARDIOVASCULAR PHYSICIAN NOTIFIED AND INSPECTOR FIREARMS CALLED BACK AND SAID TO CONTINUE WITH THERAPY UNLESS THE PT WAS SYMPTOMATIC. PT UP WITH 1 PERSON MIN ASSIST WITH CUES. Q1H VISUAL CHECKS. CALL LIGHT WITHIN REACH. FALL PRECAUTIONS IN PLACE
[2018-08-31 19:45] VITALS: BP 114/58
[2018-08-31 21:20] VITALS: BP 118/67
--- NOTE | 2018-08-31 23:00 | NUR ---
PT ASSESSMENT COMPLETED AND VSS. MEDS GIVEN ORDERED AND WELL TOLERATED. FALL PRECAUTIONS IN PLACE. DRSG ON LEFT HIP DRY AND INTACT. ASST WITH REPOSITION FOR COMFORT. PRN TYLENOL HELPFUL FOR HIP PAIN. SLEEPING WELL. WILL CONTINUE TO MONITOR FREQUENTLY.
[2018-09-01 08:24] VITALS: BP 133/62
[2018-09-01 08:39] VITALS: BP 133/62
[2018-09-01 08:40] VITALS: BP 103/58
--- NOTE | 2018-09-01 11:23 | NUR ---
ASSUMED CARES AT 0700. ALERT AND ORIENTEDX4. REFUSED TO GET UP TO DINNING FOR MEALS. HAS POOR APPETITE D/T DOESN'T LIKE FOOD IN THE HOSPITAL. DISCUSSED THAT OK FOR FAMILY TO BRING FOOD LONG FOOD ARE LOW ON SALT AND CARB. HAD MILD LEFT HIP PAIN THIS AM. 5/10, PRN ACETAMINOPHEN ADMINISTERED NEEDED. LEFT HIP DRESSING REMAINS INTACT, BRUISING REMAINS AROUND INCISION, WEIGHT BEARING TOLERATED ON THE EXTREMITY. OTHOSTATIC HYPOTENSION NOTED , HR FLACTUATING AND >140BPM WITH ACTIVITY. DR. GOODSON AND WOOD FLOUR MILLER AWARE. ENCOURAGED PT DEEP BREATH AND TO GET UP SLOWLY TO PREVENT FALL, DENIES DIZINESS AND LIGHT HEADACHE TODAY AND WELL DIGGER CALLED BACK AND SAID TO CONTINUE WITH THERAPY UNLESS THE PT WAS SYMPTOMATIC. PT UP WITH 1 PERSON MIN ASSIST WITH CUES. Q1H VISUAL CHECKS. CALL LIGHT WITHIN REACH. FALL PRECAUTIONS IN PLACE. OFFERED SUPPORTIVE CARE, DISCUSSED ABOUT PLANS OF CARE. ENCOURAGED PT TO GO TO DINNING ROOM FOR MEALS, PT REFUSED. BS MONITOR, INSULIN AND MORNING MEDS GIVEN ORDERED. DENIES PAIN. RESTING IN BED AND WATCHING TV AT THIS MOMENT. CHECK FREQUENTLY FOR NEEDS AND SAFETY. WILL CONTINUE TO MONITOR.
[2018-09-01 19:18] VITALS: BP 105/54
--- NOTE | 2018-09-02 00:02 | NUR ---
PT ASSESSMENT COMPLETED AND VSS. MEDS GIVEN ORDERED AND WELL TOLERATED. FALL PRECAUTIONS IN PLACE. ASST WITH FREQUENT REPOSITION. DSG ON L HIP DRY AND INTACT. PRN TYLENOL HELPFUL FOR HIP PAIN. PT VOIDING LARGE AMOUNT OF YELLOW URINE. SLEEPING WELL. WILL CONTINUE TO MONITOR FREQUENTLY.
[2018-09-02 08:30] VITALS: BP 113/68
--- NOTE | 2018-09-02 09:50 | NUR ---
ASSUMED CARES AT 0700. PT IN BED, AWAKE, ALERT AND ORIENTED TO PERSON AND PLACE, FORGETFUL AT TIMES. C/O HIP PAIN 09/16, DID NOT WANT ANY PAIN MANAGEMENT AT THIS TIME. CONTINUES TO HAVE BRUISING ON LEFT HIP, AQUACEL DRESSING REMAINS DRY AND INTACT, WEIGHT BEARING ON EXTREMITY TOLERATED. PULSES REMAIN 2+/2+, HR ELEVATED 126 THIS AM, PHYSICIAN NOTIFIED AND STATED THAT WE MONITOR FOR NOW UNLESS PT BECOMES SYMPTOMATIC. ADIN HOSE REMAIN IN PLACE, SCD ON AT NOC REMOVED IN THE AM. PT UP WITH 1 PERSON MIN ASSIST, AMBULATED SHORT DISTANCE WITH PT AND TOLERATED WELL. Q1H VISUAL CHECKS. Q2H TURNS. CALL LIGHT WITHIN REACH. FALL PRECAUTIONS IN PLACE
[2018-09-02 20:00] VITALS: BP 115/67
--- NOTE | 2018-09-03 01:46 | NUR ---
assumed care at approx 1900 evening 09/02. pt lying in bed with head of bed elevated dozing off and on. pt stated he had a good day. pt took hs meds with water tolerating well. left hip dressing c/d/i. pt voiding per urinal and able to turn himself in bed. pt wearing teds and scds. pt appears to be sleeping soundly with hourly rounding checks. bed alarm on and call light in reach. will continue to monitor.
[2018-09-03 07:20] VITALS: BP 132/61
--- NOTE | 2018-09-03 09:28 | NUR ---
ASSUMED CARES AT 0700. PT ORIENTED TO SELF ONLY, PT 'SHORT' WITH STAFF THIS AM, YELLING AND RAISING HIS VOICE. VITALS REMAINED STABLE. C/O PAIN IN HIS LEFT HIP, ACETAMINOPHEN ADMINISTERED NEEDED. AQUACEL DRESSING ON LEFT HIP REMAINS DRY AND INTACT. PT CONTINUES TO HAVE A BRUISE ON THE LEFT HIP. WEIGHT BEARING ON LEFT HIP TOLERATED. PT HAS MILD BLE EDEMA, ADIN HOSE ON, SCD ON TILL 8AM. PT UP WITH 1 PERSON MIN ASSIST. Q1H VISUAL CHECKS. Q2H TURNS. CALL LIGHT WITHIN REACH. FALL PRECAUTIONS IN PLACE
[2018-09-03 19:30] VITALS: BP 118/62
--- NOTE | 2018-09-04 00:26 | NUR ---
PT ASSESSMENT COMPLETED AND VSS. MEDS GIVEN ORDERED AND WELL TOLERATED. FALL PRECAUTIONS IN PLACE. VOIDING LARGE AMOUNT PER URINAL. SLEEPING WELL. DANIEL CONTINUE TO MONITOR FREQUENTLY.
[2018-09-04 08:24] VITALS: BP 123/70
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
--- NOTE | 2018-09-04 13:51 | NUR ---
team meeting, recommendation : step/stairs training with sister on day of dc 28, ( pt, ot, st, nursing), needs follow up with surgeon and pcp to get cleared to drive. needs assist with medication.
--- NOTE | 2018-09-04 14:27 | NUR ---
ASSUMED CARE AT SHIFT CHANGE. PT A/O X 4, AGGITATED AND IMPULSIVE AT TIMES. PT VERBALIZES NOT WANTING TO BE HERE AND WANTING TO GO HOME. ENCOURAGED TO KEEP WORKING WITH THERAPY IN ORDER TO MEET GOALS TO GO HOME. PT DENIES PAIN TO ME THUS FAR. UP WITH ASSIST/GB/WALKER. TAKES PILLS WITH WATER, VSS. L HIP DRSSG C/D/I. ON TURN TEAM, ALTHOUGH PT HAS REFUSED TO TURN FULLY A COUPLE TIMES. UP TO CHAIR WITH THERAPY AND AMBULATING SEVERAL TIMES TODAY. PER TEAM CONFERENCE, PLAN TO DC ON MONDAY TO HOME WITH HH. WILL CONT TO MONITOR AND FOLLOW POC.
[2018-09-04 19:34] VITALS: BP 111/67
--- NOTE | 2018-09-05 02:23 | NUR ---
TURNED TO SIDE WITH PILLOW TO SUPPORT. AQUACEL AG TO LEFT HIP CLEAN, DRY, INTACT WITH PURPLE BRUISING POSTERIORLY. DENIES PAIN
[2018-09-05 09:27] VITALS: BP 131/72
--- NOTE | 2018-09-05 12:48 | NUR ---
Nutrition followup on rehab unit. Continues to report strong dislike of any hospital food including alternative menu items. Currently drinking 3 Glucerna drinks a day and 100% of lunches brought in by sister daily. Total provisions from Glucerna 660 kcals and 30 gm protein. Will change to Ensure enlive at breakfast and dinner since this is pt's only intake those meals to provide higher calorie/protein provisions. Continue glucerna at lunch meals. No weight since 08/28. Request new weight. Planned Discharge tomorrow.
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
--- NOTE | 2018-09-05 14:47 | NUR ---
cm notified by nurse unite user support analyst supervisor and that sister wants to have family meeting tomorrow with possible pt son's. cm called and spoke with sister nick x 3, rt home health services with [facility] ( pt, ot ,st, nursing, bath aid and sw), transportation for dr appointment, ie express transport and cabs with all out of packet cost for cece. insurance do not cover transportation to and from dr appointments. senior blue book with private duty if needed after hh is complete. " ok then i will be there tomorrow at 1245, but he will needed to be independent if he is coming home, he need to back it to bathroom, be able to go up and down those stairs and cook. i am not able to lift him."/nick. will cont following as needed for dc needs.
--- NOTE | 2018-09-05 17:19 | NUR ---
[facility]TH[facility] CALL: PER LEROY, CALLED ORTHO TO SEE IF DR. GERMAIN WOULD LIKE TO DO 2-WEEK POST OP REMOVAL OF SUTURES, AND IF XRAY DESIRED, TOMORROW BEFORE D/C, HERE ON THE UNIT, SPOKE W/LIS[facility] SERVICE - [facility]
--- NOTE | 2018-09-05 17:30 | NUR ---
SPOKE W/SURGEON'S OFFICE, THEY DECLINED, AT THIS TIME, COMING TO HOSPITAL TO DO TWO WEEK POST OP XRAY, STAPLE REMOVAL. STAFF THAT RETURNED CALL SAID SHE'D TEXT DR. GERMAIN. KITCHEN HAND ASKED THAT I LET [facility] KNOW. DONE
[2018-09-05 19:10] VITALS: BP 108/65
--- NOTE | 2018-09-06 03:53 | NUR ---
HAS BEEN TURNED TO SIDE TWICE TONIGHT WITH ONLY A SINGLE PILLOW UNDER BACK AND SHOULDER PER PATIENT PREFERENCE. CONTINENT, USING URINAL INDEPENDENTLY. LOOKING FORWARD TO GOING HOME TODAY, DENIES PAIN, LEFT HIP AQUACEL AG DRESSING DRY AND INTACT.
[2018-09-06 07:30] VITALS: BP 122/73
[2018-09-06] MEDS ORDERED: COLACE100 MG PO (08:21)
[2018-09-06] MEDS ORDERED: PACERONE 200 M200 M1 PO ×2 (08:21→10:57)
[2018-09-06] MEDS ORDERED: FLORINEF ACETA0.1 MG PO (08:21)
[2018-09-06] MEDS ORDERED: ASPIRIN325 PO (08:21)
[2018-09-06] MEDS ORDERED: TYLENOL325 MG PO (08:21)
[2018-09-06 09:34] VITALS: BP 122/73
--- NOTE | 2018-09-06 09:35 | NUR ---
SPOKE WITH ADM. [facility] AND THEY CAN ACCEPT PT. AT DISCHARGE NOTIFIED THEM OF NO DC TODAY. DCP TO FOLLOW.
--- NOTE | 2018-09-06 12:45 | NUR ---
cm visited with pt and sister nick on [facility] visit in home and sister asked who do i call if there is change, ie call hh or if ER call 911. 5 n team arrived for family meeting with pt and sister rt dcp and question. cm education on follow up appointment, cm provided [facility] aguiar at [place], resources for private duty, transportation, recommendation of not driving till cleared with physician. senior book provided for pt and sister. [facility] includes ( nursing, pt, ot, st, sw, and bath aid). education on being compliant with home health and follow up appointment. sister wanted pt to have transportation home and assist into the condo, pt refused. pt, ot, st, bedside nurse all made recommendation and education for safe dc needs. pt refused shower chair or grab bars, " will let bath aid help me"/cece. "use micro wave to cook, or have supervision while cooking. need lots of clues during cooking, medication supervisor sample preparation and bills. needs supervision with clues while walking up and down his 20 + step at home with use of cane"/ therapy. pt sister asked where to get him urinal, education on [facility] when goes to get rx from pharmacy. nick gave cm big hug and stated " thank you so much, and team been nice. if need anything will call"/nick. provider plus to bring fww today for dc. will cont following as needed for dc needs. during whole visit noted sarcasm in pt voice. pt and physical therapy showed sister how he was doing with stairs.
[2018-09-06 13:36] VITALS: BP 122/73
--- NOTE | 2018-09-06 14:59 | NUR ---
PT. DISCHARGING TODAY TO HOME WITH [facility]. NOTIFIED [facility] OF DISCHARGE AND THEY WILL NOTIFY PT. OF TIME OF VISITS.
--- NOTE | 2018-09-06 15:30 | NUR ---
ASSUMED CARE OF PATIENT AT APPROX 0715. PATIENT A/O X4. FRUSTRATED. STATED HE WAS DISCHARGING TODAY. VSS. PATIENT REFUSED THERAPY. AM MEDS ADMINISTERED PER ORDERS. FAMILY TRANING COMPLETED. JOHN REMOVED TO REVIEWED DISCHARGE PACKET WITH PATIENT AND HIS SISTER. PATIENT REFUSED TEACH BACK. PATIENT'S SISTER'S QUESTIONS WERE ANSWERED. PRESCRIPTIONS PROVIDED, MED INFO SHEETS PROVIDED. PATIENT LEFT UNIT WITH PHYSICAL THERAPIST TO ASSIST TRANSFER TO VEHICLE. PATIENT LEFT UNIT APPROX 1500.
--- NOTE | 2018-09-08 16:07 | HC ---
[facility] [place] [address] CONSULTATION Name: KWAME PATEL Room #: 504-2 [facility] M.R.#: [id number] Admission: 08/28/18 ������������������ Attend Phys: Nick Tidwell MD Discharge: 09/06/18 ������������������ Date of : 40 Report #: [id number] THIS REPORT FOR: //name// CC: Nick Aquino DATE OF SERVICE: 09/01/2018 ATTENDING PHYSICIAN: Nick Tidwell MD JOB TRAINING SPECIALIST: Juan Carlos Martin, PhD CLINICAL PRESENTATION: The patient is a 78-year-old male admitted to the [facility] for a comprehensive inpatient rehabilitation program to improve functional mobility, activities of daily living and self-care and mental status secondary to deficits from a left intertrochanteric fracture. His injury occurred while at home. He stood up, was looking outdoors and then when turning, fell into a table, fracturing his hip. The patient has had recurrent falls. His diagnoses include atrial fibrillation with rapid ventricular response, syncopal episode secondary to the atrial fibrillation, rlwnzwgguya-lw-pvrdudfvrwjg, type 2 diabetes mellitus, hyperlipidemia, history of TIA and deep venous thrombosis prophylaxis. A complete description of his medical condition and history can be found in his medical record. Neuropsychological consultation was requested to provide assistance in the assessment of cognitive and emotional status and provide recommendations and services. Prior to this most recent admission, he reports living independently with his sister in their home. The patient reports that he was independent with instrumental activities of daily living and driving. He is with 2 children. 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 TECHNIQUES UTILIZED: Clinical interview, review of medical records, staff consultation and behavioral observation, mini mental status exam 2 standard version, category fluency and clock drawing. EXAMINATION FINDINGS: The patient was alert and cooperative with the assessment. He does not present with aphasia. Thoughts are logical and goal oriented. There is no evidence of thought disorder. He does not report auditory or visual hallucinations. Symptoms are reported to include decreased appetite, memory problems and word finding deficits. Sleep is described as within normal limits. He does not report symptoms of depression or anxiety. There is no history of alcohol or substance abuse. [facility] [address] [place] [address] CONSULTATION Name: KWAME PATEL Room #: 504-2 [facility] M.R.#: [id number] Admission: 08/28/18 ������������������ Attend Phys: Nick Tidwell MD Discharge: 09/06/18 ������������������ Date of : 40 Report #: [id number] His performance on the MMSE 2 brief version is within normal limits with a raw score of 13 of 16. He was 3/3 for initial registration, 5/5 for orientation to time and place. Deficits in memory are noted with a score of 0/3 for immediate recall. However, he does have a 10th grade education, which lowers expectation in regard to cognitive functioning. Performance on the MMSE 2 standard version is within normal limits with a T score of 45, a raw score of 24/30. He was 3/5 for serial sevens, 2/2 for naming, 1/1 for repetition, 3/3 for auditory comprehension. He was able to read and follow a single command. He had difficulty in copying a simple geometric design. Clock drawing was within normal limits. The patient's category fluency score as assessed through animal fluency, was within normal limits with a raw score of 16. 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 SUMMARY AND RECOMMENDATIONS: The patient is presenting with mild deficits in cognition. Poor insight into his deficits may place him at increased safety risk. He is driving and an evaluation may be necessary to clarify the extent to which he is able to manage safely. He may also need help with management of medication. Thank you very much for allowing me to provide the consultation on this patient. ��������������������������������������������� <ELECTRONICALLY SIGNED> ���������������������������������������� By: Juan Carlos Martin, PhD ��������������������������������������������� 09/08/18 [id number] Juan Carlos Martin, PhD /nt
== END 2018-09-06 16:07 | disposition home health service (06) | DRG 536 ==
PROVIDERS: Nurse Practitioner Family; ADMIT Physical Medicine & Rehabilitation
DX: S72.142A Displaced intertrochanteric fracture of left femur, initial encounter for closed fracture (principal); I10 Essential (primary) hypertension; E11.9 Type 2 diabetes mellitus without complications; E78.5 Hyperlipidemia, unspecified; I95.1 Orthostatic hypotension; I48.0 Paroxysmal atrial fibrillation; W18.39XA Other fall on same level, initial encounter; R29.6 Repeated falls; I25.10 Atherosclerotic heart disease of native coronary artery without angina pectoris; Z53.29 Procedure and treatment not carried out because of patient's decision for other reasons; Z86.73 Personal history of transient ischemic attack (TIA), and cerebral infarction without residual deficits; Z87.891 Personal history of nicotine dependence; Y93.89 Activity, other specified; Y92.098 Other place in other non-institutional residence as the place of occurrence of the external cause; Y99.8 Other external cause status
CPT/HCPCS: 10112